=== PATIENT | female | born 1980 | race African-American/Black ===

== ENCOUNTER 2016-05-22 12:50 | Emergency (ER) | payer OTHER ==
[~2016-05-22] VITALS: Ht 157.5 cm; Wt 58.0 kg
[2016-05-22] MEDS ORDERED: UNKNOWN PAIN MED (13:04)
[2016-05-22] MEDS ORDERED: TRAMADOL 50MG TABLET PO ONE (14:30)
[2016-05-22] MEDS ORDERED: ONDANSETRON 4MG ODT PO ONE (14:30)
[2016-05-22 14:35] LABS: INR 1.1; PROTHROMBIN TIME 10.9 sec
[2016-05-22 14:37] LABS: BASOPHILS % 0.5 % (0.0-2.0); EOSINOPHILS % 0.7 % (0.0-5.0); HEMATOCRIT. 32.9 % (36.0-48.0); LYMPHOCYTES % 41.2 % (20.0-50.0); MEAN CORPUSCULAR HEMOGLOBIN 38.2 pg (28.0-32.0); MEAN CORPUSCULAR HGB CONC 33.3 g/dL (31.0-37.0); MEAN CORPUSCULAR VOLUME 114.6 fL (81.0-99.0); MEAN PLATELET VOLUME 6.7 fl (7.4-10.4); MONOCYTES % 7.7 % (2.0-8.0); NEUTROPHILS % 49.9 % (40.0-76.0); PLATELET 363 x1000/uL (130-400); RED BLOOD CELL COUNT 2.87 mill/uL (4.2-5.4); RED CELL DISTRIBUTION WIDTH 16.8 % (11.6-14.6)
[2016-05-22 14:39] LABS: ADD RBC MORPHOLOGY YES; DIFFERENTIAL COMMENT 1
[2016-05-22 14:43] LABS: ALANINE AMINOTRANSFERASE 70 IU/L (13-61); ALBUMIN 3.7 g/dL (3.4-5.0); ANION GAP 23; CALCIUM 8.5 mg/dL (8.5-10.1); CARBON DIOXIDE 20 mEq/L (21-32); CHLORIDE 102 mEq/L (98-107); INDEX HEMOLYSI 3 (1-3); INDEX ICTERIC 1 (1-4); INDEX LIPEMIC 1 (1-3); LIPASE 112 IU/L (73-393); UREA NITROGEN BLOOD 5 mg/dL (7-21); eGFR > 60 mL/min (>60)
[2016-05-22 14:48] LABS: ANISOCYTOSIS 1+; PLATELET ESTIMATE NORMAL
[2016-05-22 14:50] LABS: CLARITY URINE CLOUDY (CLEAR); COLOR URINE YELLOW (YELLOW); GLUCOSE URINE NEGATIVE (NEGATIVE); KETONES URINE TRACE (NEGATIVE); LEUKOCYTE ESTERASE URINE NEGATIVE (NEGATIVE); NITRITE URINE NEGATIVE (NEGATIVE); OCCULT BLOOD URINE NEGATIVE (NEGATIVE); PH URINE 5.5 (4.5-8.0); PROTEIN URINE TRACE (NEGATIVE); SPECIFIC GRAVITY URINE 1.023 (1.005-1.030); UROBILINOGEN URINE 0.2 E.U./dL (0.2-1.0)
[2016-05-22 15:18] LABS: RBC URINE NONE SEEN /hpf (0-2); WBC URINE 0-2 /hpf (0-2)
[2016-05-22 15:19] LABS: BACTERIA URINE 2+; SQUAMOUS EPITHELIAL CELL URINE 1+ /lpf (RARE/1+)
[2016-05-22 17:46] VITALS: BP 121/73
== END 2016-05-22 17:47 | disposition home or self-care (01) ==
LOC: ER 13:53
DX: R10.12 Left upper quadrant pain (principal); F10.10 Alcohol abuse, uncomplicated; R74.8 Abnormal levels of other serum enzymes; E83.30 Disorder of phosphorus metabolism, unspecified; D53.9 Nutritional anemia, unspecified
CPT/HCPCS: 36415; 76705; 80053; 81001; 81025; 83690; 85025; 85610; 99285; Q0162; Z7610